=== PATIENT | female | born 1990 | race American Indian/Alaskan Native ===

== ENCOUNTER 2016-11-28 23:08 | Emergency (ER) | payer SELFPAY ==
[2016-11-28 23:49] VITALS: BP 112/62
[2016-11-29 00:24] LABS: Hematocrit 36.1 % (30.3-42.9); Hemoglobin 12.1 gm/dl (10.1-14.3); Mean Corpuscular HGB Conc 34 % (30-34); Mean Corpuscular Hemoglobin 28 pg (28-32); Mean Corpuscular Volume 83 fl (79-97); Platelet Count 312 K/mm3 (140-440); Red Blood Count 4.33 M/mm3 (3.65-5.03); White Blood Count 6.3 K/mm3 (4.5-11.0)
[2016-11-29 00:42] LABS: Blood Urea Nitrogen 10 mg/dL (7-17); Calcium 8.9 mg/dL (8.4-10.2); Carbon Dioxide 26 mmol/L (22-30); Chloride 98.1 mmol/L (98-107); Glucose 106 mg/dL (65-100); Sodium 135 mmol/L (137-145)
[2016-11-29 00:55] LABS: Anion Gap 15 mmol/L
--- NOTE | 2016-12-01 14:39 | ED Elopement Review ---
ED Pt Elopement review - Results review Lab results: Laboratory Tests 11/28/16 11/28/16 11/28/16 23:57 23:57 23:57 WBC 6.3 RBC 4.33 Hgb 12.1 Hct 36.1 MCV 83 MCH 28 MCHC 34 RDW 14.0 Plt Count 312 Sodium 135 L Potassium 4.0 Chloride 98.1 Carbon Dioxide 26 Anion Gap 15 BUN 10 Creatinine 0.4 L Estimated GFR > 60 BUN/Creatinine Ratio 25.00 Glucose 106 H Calcium 8.9 HCG, Quant 66335 H - Call Back decision Pt Call Back Decision: No action required
== END 2016-11-29 05:30 | disposition left against medical advice (07) ==
LOC: ED 23:08
DX: R11.2 Nausea with vomiting, unspecified (principal); R42 Dizziness and giddiness; R53.1 Weakness; R51 Headache; Z53.21 Procedure and treatment not carried out due to patient leaving prior to being seen by health care provider
CPT/HCPCS: 36415; 80048; 84702; 85027